=== PATIENT | male | born 1980 | race Two or more races ===

== ENCOUNTER → 2023-01-13 | Emergency (ER) | payer BC ==
[~2023-01-13] VITALS: Ht 170.2 cm; Wt 83.0 kg
[~2023-01-13] MED LIST: LIDOCAINE 1%/EPI 1:100,000 inj. 10 ML multi-dose vial SQ ONE; LIDOcaine 1% W/epiNEPHrine 1:100,000 20ml vial SQ ONE
[2023-01-13 02:45] VITALS: BP 127/85; PULSE 59; RESP 16; TEMP 98.7; O2SAT 97
== END | disposition left against medical advice (07) ==
LOC: ER 02:23
DX: M79.601 Pain in right arm (principal); Z53.21 Procedure and treatment not carried out due to patient leaving prior to being seen by health care provider
CPT/HCPCS: 99281; 99282